=== PATIENT | female | born 1995 | race Caucasian/White ===

== ENCOUNTER 2020-07-24 11:47 | Observation (INO) ==
[2020-07-24 13:23] LABS: Amorphous Sediment,Urine Few per hpf (None-Few); Bacteria,Urine Few per hpf (None-Few); Bilirubin,Urine Negative (Negative); Blood,Urine Negative (Negative); Clarity,Urine Turbid (Clear); Color,Urine Yellow (Yellow); Glucose,Urine (UA) Normal (Normal); Ketones,Urine Negative (Negative); Leukocyte Esterase,Urine Moderate (Negative); Nitrite,Urine Negative (Negative); Protein,Urine Trace mg/dL (Neg-Trace); RBC,Urine 0-3 per hpf (0-3); Specific Gravity,Urine 1.024 (1.010-1.025); Squamous Epithelial Cell,Urine Moderate per hpf (None-Few); Urobilinogen,Urine Normal (Normal)
[2020-07-24 14:58] LABS: Candida DNA Not Detected (Not Detect); Gardnerella DNA Not Detected (Not Detect); Trichomonas DNA Not Detected (Not Detect)
== END 2020-07-24 14:10 | disposition home or self-care (01) ==
LOC: 1NENULAB
PROVIDERS: ADMIT Student in an Organized Health Care Education/Training Program; ATTEND Student in an Organized Health Care Education/Training Program

== ENCOUNTER 2020-08-23 08:14 | Inpatient (IN) ==
[2020-08-23] MEDS ORDERED: *HR* Morphine Sulfate/PF 10 MG/10 ML AMPUL ONE (08:21)
[2020-08-23] MEDS ORDERED: *HR* FentaNYL (PF) 100 MCG/2 ML VIAL ONE ×2 (08:22→11:55)
[2020-08-23] MEDS ORDERED: Ringers Solution, Lactated 1,000 ML IVC ONE (08:31)
[2020-08-23] MEDS ORDERED: CeFAZolin Syr 3,000MG/30 ML 3,000 MG/30 ML SYRINGE IVPB ONE (08:31)
[2020-08-23] MEDS ORDERED: Metoclopramide 10 MG/2 ML VIAL IVP ONE (08:31)
[2020-08-23] MEDS ORDERED: Famotidine 20 MG/2 ML VIAL IVP ONE (08:31)
[2020-08-23] MEDS ORDERED: Ringers Solution, Lactated 1,000 ML IVC SCH (08:45)
[2020-08-23] MEDS ORDERED: Ondansetron 4 MG/2 ML VIAL ONE (09:23)
[2020-08-23 09:33] LABS: Basophils % 0.4 %; Eosinophils # 0.1 K/mcL (0.0-0.6); Eosinophils % 1.4 %; Hematocrit 34.3 % (35.3-44.9); Immature Granulocytes % 0.2 % (0-4); Lymphocytes # 2.4 K/mcL (0.6-4.6); Lymphocytes % 25.2 %; Mean Corpuscular HGB Conc 32.1 g/dL (31.6-35.5); Mean Corpuscular Hemoglobin 28.6 pg (28.0-33.3); Mean Corpuscular Volume 89.3 fL (83.0-100.0); Monocytes # 0.5 K/mcL (0.0-1.3); Monocytes % 5.2 %; Neutrophils # 6.5 K/mcL (1.6-8.9); Platelet Count 332 K/mcL (140-400); Red Blood Count 3.84 M/mcL (3.82-4.97); Red Cell Distribution Width 13.5 % (11.5-14.5); Segmented Neutrophils % 67.6 %; White Blood Count 9.6 K/mcL (4.3-11.1)
[2020-08-23 09:37] LABS: Influenza A PCR Negative (Negative); Influenza B PCR Negative (Negative); Resp. Syncytial Virus PCR Negative (Negative)
[2020-08-23 09:42] LABS: Amphetamine Screen,Urine Negative ng/mL (Cutoff=1000); Barbiturate Screen,Urine Negative ng/mL (Cutoff=200); Benzodiazepines Screen,Urine Negative ng/mL (Cutoff=200); Cannabinoid Screen,Urine Negative ng/mL (Cutoff = 50); Cocaine Screen,Urine Negative ng/mL (Cutoff= 300); Opiate Screen,Urine Negative ng/mL (Cutoff=300); Phencyclidine Screen,Urine Negative ng/mL (Cutoff=25)
[2020-08-23] MEDS ORDERED: Ondansetron 4 MG/2 ML VIAL IVP PRN ×2 (10:00→14:32)
[2020-08-23 10:03] LABS: SARS-CoV-2 by PCR (In House) Negative (Negative)
[2020-08-23] MEDS ORDERED: *HR* HYDROmorphone (PF) 1 MG/ML SYRINGE IVP PRN (10:05)
[2020-08-23] MEDS ORDERED: Acetaminophen IV 1,000 MG/100 ML BAG IVPB ONE (11:22)
[2020-08-23] MEDS ORDERED: *HR* Phenylephrine 10 MG/ML VIAL ONE (11:24)
[2020-08-23] MEDS ORDERED: Sennosides 8.6 MG TABLET PO PRN (14:32)
[2020-08-23] MEDS ORDERED: Oxytocin 20 units/ LR 1000 mL 20 UNIT/1,000 ML BAG IVC SCH (14:32)
[2020-08-23] MEDS ORDERED: Simethicone 80 MG TAB.CHEW PO PRN (14:32)
[2020-08-23] MEDS ORDERED: Metoclopramide 10 MG/2 ML VIAL IVP PRN (14:32)
[2020-08-24 04:23] LABS: Basophils % 0.2 %; Eosinophils # 0.1 K/mcL (0.0-0.6); Eosinophils % 0.6 %; Hematocrit 30.4 % (35.3-44.9); Hemoglobin 9.9 g/dL (11.5-15.4); Immature Granulocytes % 0.3 % (0-4); Lymphocytes # 2.2 K/mcL (0.6-4.6); Lymphocytes % 21.6 %; Mean Corpuscular HGB Conc 32.6 g/dL (31.6-35.5); Mean Corpuscular Hemoglobin 28.6 pg (28.0-33.3); Mean Corpuscular Volume 87.9 fL (83.0-100.0); Mean Platelet Volume 10.5 fL (9.4-12.4); Monocytes # 0.5 K/mcL (0.0-1.3); Monocytes % 5.1 %; Neutrophils # 7.5 K/mcL (1.6-8.9); Platelet Count 294 K/mcL (140-400); Red Blood Count 3.46 M/mcL (3.82-4.97); Red Cell Distribution Width 13.7 % (11.5-14.5); Segmented Neutrophils % 72.2 %; White Blood Count 10.4 K/mcL (4.3-11.1)
[2020-08-24] MEDS: FLUoxetine 20 MG CAPSULE PO SCH (07:58)
[2020-08-24] MEDS: Ibuprofen 600 MG TABLET PO PRN ×2 (07:58→17:28)
[2020-08-24] MEDS: Prenatal Vit/FA 1 EACH TABLET PO SCH (07:58)
[2020-08-24] MEDS: Acetaminophen 325 MG TABLET PO PRN (21:09)
[2020-08-24] MEDS: *HR* OxyCODONE Immed Rel 5 MG TABLET PO PRN (21:10)
[2020-08-25] MEDS: *HR* OxyCODONE Immed Rel 5 MG TABLET PO PRN ×4 (01:12→18:24)
[2020-08-25] MEDS: Ibuprofen 600 MG TABLET PO PRN ×3 (01:12→17:12)
[2020-08-25] MEDS: Acetaminophen 325 MG TABLET PO PRN (06:14)
[2020-08-25] MEDS: Prenatal Vit/FA 1 EACH TABLET PO SCH (07:54)
[2020-08-25] MEDS: FLUoxetine 20 MG CAPSULE PO SCH (07:54)
[2020-08-26] MEDS: *HR* OxyCODONE Immed Rel 5 MG TABLET PO PRN (01:43)
[2020-08-26] MEDS: Ibuprofen 600 MG TABLET PO PRN (01:43)
[2020-08-26 07:54] VITALS: BP 82/57
[2020-08-26] MEDS: FLUoxetine 20 MG CAPSULE PO SCH (08:58)
[2020-08-26] MEDS: Prenatal Vit/FA 1 EACH TABLET PO SCH (08:59)
[2020-08-26] MEDS ORDERED: Etonogestrel 68 MG IMPLANT IL ONE (13:59)
[2020-08-26] MEDS ORDERED: Lidocaine 1% 20 ML MDV ONE (15:42)
[2020-08-26] MEDS ORDERED: Lidocaine -MPF 1% 5 ML AMPUL ONE (15:49)
== END 2020-08-26 17:00 | disposition home or self-care (01) | DRG 540 ==
LOC: 1NENULAB 08:14 → 1NENUOBS 14:16
PROVIDERS: ADMIT Obstetrics & Gynecology; ATTEND Obstetrics & Gynecology

== ENCOUNTER 2020-09-06 17:35 | Inpatient (IN) ==
[2020-09-06 18:26] LABS: Basophils % 0.5 %; Eosinophils % 0.7 %; Hemoglobin 10.8 g/dL (11.5-15.4); Lymphocytes # 1.6 K/mcL (0.6-4.6); Lymphocytes % 38.9 %; Mean Corpuscular HGB Conc 30.9 g/dL (31.6-35.5); Mean Corpuscular Hemoglobin 27.8 pg (28.0-33.3); Mean Corpuscular Volume 90.2 fL (83.0-100.0); Mean Platelet Volume 10.3 fL (9.4-12.4); Monocytes # 0.4 K/mcL (0.0-1.3); Monocytes % 10.4 %; Neutrophils # 2.1 K/mcL (1.6-8.9); Platelet Count 314 K/mcL (140-400); Red Blood Count 3.88 M/mcL (3.82-4.97); Red Cell Distribution Width 13.3 % (11.5-14.5); Segmented Neutrophils % 49.5 %; White Blood Count 4.1 K/mcL (4.3-11.1)
[2020-09-06 18:39] LABS: Alanine Aminotransferase 46 Units/L (7-52); Albumin 3.9 g/dL (3.5-5.7); Albumin/Globulin Ratio 1.3 (1.1-2.2); Alkaline Phosphatase 88 Units/L (34-104); Aspartate Amino Transferase 26 Units/L (13-39); BUN/Creatinine Ratio 19 (6-26); Bilirubin,Direct 0.1 mg/dL (0.0-0.2); Bilirubin,Indirect 0.1 mg/dL (0.0-1.0); Bilirubin,Total 0.2 mg/dL (0.3-1.0); Blood Urea Nitrogen 12 mg/dL (6-20); Calcium 8.9 mg/dL (8.6-10.3); Carbon Dioxide 26 mEq/L (23-29); Chloride 112 mEq/L (98-107); Glucose 71 mg/dL (70-105); Lactate Dehydrogenase 164 Units/L (140-271); Magnesium 1.8 mg/dL (1.6-2.6); Osmolality,Calculated 276 (280-300); Potassium 3.6 mEq/L (3.5-5.1); Sodium 134 mEq/L (136-145); Total Protein 6.9 g/dL (6.4-8.9); Uric Acid 6.7 mg/dL (2.3-7.6); eGFR For African Americans > 60 (> 60); eGFR For Non-African Americans > 60 (> 60)
[2020-09-06 19:26] LABS: Bacteria,Urine Few per hpf (None-Few); Bilirubin,Urine Negative (Negative); Blood,Urine Negative (Negative); Clarity,Urine Turbid (Clear); Color,Urine Yellow (Yellow); Glucose,Urine (UA) Normal (Normal); Hyaline Casts,Urine Few per lpf (None Seen); Ketones,Urine Negative (Negative); Leukocyte Esterase,Urine Large (Negative); Mucus,Urine Few per lpf (None-Few); Nitrite,Urine Negative (Negative); Protein,Urine 30 mg/dL (Neg-Trace); Specific Gravity,Urine > 1.030 (1.010-1.025); Squamous Epithelial Cell,Urine Few per hpf (None-Few); WBC,Urine TNTC per hpf (0-3)
[2020-09-06 19:50] LABS: Protein/Creatinine Ratio,Urine 0.12 mg/mg (0.00-0.20)
[2020-09-06] MEDS ORDERED: levETIRAcetam 250 MG TABLET PO STA (19:50)
[2020-09-06] MEDS ORDERED: cephALEXin 500 MG CAPSULE PO STA (19:56)
[2020-09-06 20:55] LABS: Acetaminophen < 10 mcg/mL (10-20); Ethanol < 10 mg/dL (Less than 10); Salicylate < 2.5 mg/dL (15.0-30.0)
[2020-09-06 21:36] LABS: Amphetamine Screen,Urine Negative ng/mL (Cutoff=1000); Barbiturate Screen,Urine Negative ng/mL (Cutoff=200); Benzodiazepines Screen,Urine Negative ng/mL (Cutoff=200); Cannabinoid Screen,Urine Negative ng/mL (Cutoff = 50); Cocaine Screen,Urine Negative ng/mL (Cutoff= 300); Opiate Screen,Urine Positive ng/mL (Cutoff=300); Phencyclidine Screen,Urine Negative ng/mL (Cutoff=25)
[2020-09-06] MEDS ORDERED: Ibuprofen 600 MG TABLET PO ONE (22:35)
[2020-09-06] MEDS ORDERED: Ondansetron 4 MG/2 ML VIAL IVP PRN (23:23)
[2020-09-06] MEDS ORDERED: Naloxone 0.4 MG/ML INJ IVP PRN (23:23)
[2020-09-06] MEDS ORDERED: *HR* LORazepam 2 MG/ML VIAL IVP PRN (23:33)
[2020-09-07] MEDS: Acetaminophen 325 MG TABLET PO PRN ×3 (00:05→17:48)
[2020-09-07] MEDS: levETIRAcetam 250 MG TABLET PO SCH ×2 (05:19→17:48)
[2020-09-07] MEDS: *HR* Enoxaparin 40 MG/0.4 ML SYRINGE SQ SCH (05:19)
[2020-09-07] MEDS ORDERED: cephALEXin 500 MG CAPSULE PO SCH (09:00)
[2020-09-07] MEDS ORDERED: FLUoxetine 20 MG CAPSULE PO SCH (09:00)
[2020-09-07] MEDS: Ketoconazole 2% CRM 15 GM TUBE TP SCH (11:21)
[2020-09-07] MEDS ORDERED: hydrOXYzine pamoate 25 MG CAPSULE PO PRN (17:09)
[2020-09-07] MEDS: lamoTRIgine 25 MG TABLET PO SCH (19:37)
[2020-09-08] MEDS: levETIRAcetam 250 MG TABLET PO SCH ×2 (06:34→17:08)
[2020-09-08] MEDS: *HR* Enoxaparin 40 MG/0.4 ML SYRINGE SQ SCH (06:35)
[2020-09-08 08:41] LABS: Basophils % 0.3 %; Hematocrit 35.4 % (35.3-44.9); Hemoglobin 10.9 g/dL (11.5-15.4); Immature Granulocytes % 0.3 % (0-4); Lymphocytes # 2.2 K/mcL (0.6-4.6); Lymphocytes % 55.9 %; Mean Corpuscular HGB Conc 30.8 g/dL (31.6-35.5); Mean Corpuscular Hemoglobin 27.6 pg (28.0-33.3); Mean Corpuscular Volume 89.6 fL (83.0-100.0); Mean Platelet Volume 11.1 fL (9.4-12.4); Monocytes # 0.3 K/mcL (0.0-1.3); Monocytes % 7.5 %; Neutrophils # 1.4 K/mcL (1.6-8.9); Platelet Count 290 K/mcL (140-400); Red Blood Count 3.95 M/mcL (3.82-4.97); Red Cell Distribution Width 13.2 % (11.5-14.5)
[2020-09-08 09:08] LABS: BUN/Creatinine Ratio 25 (6-26); Blood Urea Nitrogen 19 mg/dL (6-20); Calcium 8.7 mg/dL (8.6-10.3); Carbon Dioxide 22 mEq/L (23-29); Chloride 108 mEq/L (98-107); Glucose 86 mg/dL (70-105); Osmolality,Calculated 290 (280-300); Potassium 3.8 mEq/L (3.5-5.1); Sodium 139 mEq/L (136-145); eGFR For African Americans > 60 (> 60); eGFR For Non-African Americans > 60 (> 60)
[2020-09-08] MEDS: Ketoconazole 2% CRM 15 GM TUBE TP SCH (10:43)
[2020-09-08] MEDS: Nystatin Cream 15 GM TUBE TP SCH ×2 (15:42→20:46)
[2020-09-08] MEDS: lamoTRIgine 25 MG TABLET PO SCH (20:32)
[2020-09-09] MEDS: levETIRAcetam 250 MG TABLET PO SCH ×2 (05:52→16:40)
[2020-09-09] MEDS: *HR* Enoxaparin 40 MG/0.4 ML SYRINGE SQ SCH (05:53)
[2020-09-09 06:47] LABS: Basophils % 0.2 %; Eosinophils % 0.2 %; Hematocrit 36.3 % (35.3-44.9); Hemoglobin 11.2 g/dL (11.5-15.4); Immature Granulocytes % 0.2 % (0-4); Lymphocytes # 2.9 K/mcL (0.6-4.6); Lymphocytes % 57.6 %; Mean Corpuscular HGB Conc 30.9 g/dL (31.6-35.5); Mean Corpuscular Volume 90.8 fL (83.0-100.0); Mean Platelet Volume 11.2 fL (9.4-12.4); Monocytes # 0.2 K/mcL (0.0-1.3); Monocytes % 4.6 %; Neutrophils # 1.8 K/mcL (1.6-8.9); Platelet Count 298 K/mcL (140-400); Red Cell Distribution Width 13.2 % (11.5-14.5); Segmented Neutrophils % 37.2 %
[2020-09-09 07:04] LABS: BUN/Creatinine Ratio 25 (6-26); Blood Urea Nitrogen 19 mg/dL (6-20); Calcium 8.7 mg/dL (8.6-10.3); Carbon Dioxide 24 mEq/L (23-29); Chloride 109 mEq/L (98-107); Glucose 88 mg/dL (70-105); Osmolality,Calculated 294 (280-300); Sodium 141 mEq/L (136-145); eGFR For African Americans > 60 (> 60); eGFR For Non-African Americans > 60 (> 60)
[2020-09-09] MEDS: Ketoconazole 2% CRM 15 GM TUBE TP SCH (09:43)
[2020-09-09] MEDS: Nystatin Cream 15 GM TUBE TP SCH ×2 (09:45→20:33)
[2020-09-09] MEDS: Acetaminophen 325 MG TABLET PO PRN (16:40)
[2020-09-09] MEDS: lamoTRIgine 25 MG TABLET PO SCH (19:38)
[2020-09-09] MEDS ORDERED: Ibuprofen 600 MG TABLET PO ONE (19:49)
[2020-09-10] MEDS: levETIRAcetam 250 MG TABLET PO SCH ×2 (05:35→17:40)
[2020-09-10] MEDS: *HR* Enoxaparin 40 MG/0.4 ML SYRINGE SQ SCH (05:35)
[2020-09-10] MEDS: Nystatin Cream 15 GM TUBE TP SCH ×2 (09:28→19:32)
[2020-09-10] MEDS: Ketoconazole 2% CRM 15 GM TUBE TP SCH (09:29)
[2020-09-10] MEDS: Acetaminophen 325 MG TABLET PO PRN (20:39)
[2020-09-10] MEDS ORDERED: lamoTRIgine 25 MG TABLET PO SCH (21:00)
[2020-09-10] MEDS: cefTRIAXone 1,000 MG in Water for inj. (sterile) 10 ML IVP SCH (22:14)
[2020-09-11] MEDS: *HR* Enoxaparin 40 MG/0.4 ML SYRINGE SQ SCH (05:09)
[2020-09-11] MEDS: levETIRAcetam 250 MG TABLET PO SCH ×2 (05:09→17:06)
[2020-09-11] MEDS: cefTRIAXone 1,000 MG in Water for inj. (sterile) 10 ML IVP SCH (07:47)
[2020-09-11] MEDS: Nystatin Cream 15 GM TUBE TP SCH (07:48)
[2020-09-11] MEDS: Ketoconazole 2% CRM 15 GM TUBE TP SCH (07:48)
[2020-09-11 11:28] VITALS: BP 105/70
[2020-09-11] MEDS: Acetaminophen 325 MG TABLET PO PRN (14:26)
== END 2020-09-11 22:00 | disposition home or self-care (01) | DRG 757 ==
LOC: EMEROOARM 17:35 → 3ANU 17:35 → SUATTDRO 22:35 → 3ANU 22:53
PROVIDERS: ADMIT Internal Medicine; ATTEND Student in an Organized Health Care Education/Training Program